=== PATIENT | male | born 1945 | race Caucasian/White ===

== ENCOUNTER → 2017-07-17 | Outpatient (CLI) | payer MEDICARE, BC ==
[~2017-07-17] MED LIST: ACET-2043 PO; ALLO-119 PO; ASPI-1441 PO; ASPI-757 PO; CALC200T27 PO; CALC600T63 PO; DOCU-416 PO; GLUC500C29 PO; HYDR-385 PO; HYDR12.561 PO; LOSA-54 PO; OXYC10TA19 PO; OXYC5CAP21 PO; TAM4 PO; [UNRECOGNIZED DRUG - CODE] RC
--- NOTE | 2017-07-21 10:04 | RT HOLTER TEST ---
FACILITY: [facility] PATIENT NAME: CHRISTEL GALLOWAY : [id number] MR: [id number] V: [id number] EXAM DATE: ORDERING PHYSICIAN: LEFTY MACHUCA TECHNOLOGIST: RAZIA Hook-up date: 2017-07-17 10:23:00 Duration: 47:59:00 Test Indications: BRADYCARDIA Medications: 888509 QRS complexes 952 Ventricular ectopics which represent <1 % of total QRS comp. 14 Supraventricular ectopics which represent <1 % of total QRS comp. * Paced QRS complexes which represent % of total QRS comp. VENTRICULAR ECTOPY 910 Isolated 0 Bigeminal Cycles 16 Couplets 1 Runs 10 Beats in Runs 10 Beats LONGEST at 95 BPM at 02:57:34 2017-07-19 10 Beats FASTEST at 95 BPM at 02:57:34 2017-07-19 SUPRAVENTRICULAR ECTOPY 3 Isolated 0 Couplets 3 Runs 11 Beats in Runs 4 Beats LONGEST at 85 BPM at 05:26:47 2017-07-18 4 Beats FASTEST at 92 BPM at 06:15:37 2017-07-18 HEART RATES 44 MIN at 04:33:20 2017-07-18 98 AVG 167 MAX at 15:14:59 2017-07-18 LONGEST RR 2.096 secs at 06:37:06 2017-07-18 S-T LEVELS Channel 1 -12.800 mm MIN at 10:23:00 2017-07-17 -12.800 mm MAX at 10:23:00 2017-07-17 Channel 2 -12.800 mm MIN at 10:23:00 2017-07-17 -12.800 mm MAX at 10:23:00 2017-07-17 Channel 3 -12.800 mm MIN at 10:23:00 2017-07-17 -12.800 mm MAX at 10:23:00 2017-07-17 Very rare supraventricular ectopy with a few short runs of 3-4 beats. Occasional ventricular ectopy with several couplets. One run of ten beats of apparent idioventricular rhythm with rate of approximately 70-80bpm was noted. A rare pause of approximately two seconds was noted. Intermittent T wave inversion was noted throughout recording in lead 2. Confirmed by JUANCARLOS SHAH ([id number]) on 07/21/2017 10:02:43 AM Referred By: Overread By: JUANCARLOS SHAH
== END ==
LOC: RESP 01:21
PROVIDERS: ATTEND Family Medicine
DX: R00.1 Bradycardia, unspecified (principal)
CPT/HCPCS: 93225

== ENCOUNTER 2017-09-17 08:00 | Outpatient (RCR) | payer MEDICARE, BC ==
[~2017-09-17 08:00] MED LIST changes: +DEXTROSE 5%(*) 100 ML BAG 100 ML IVPB PRN; +LIDOCAINE/SOD BICARB 8.4% SYR ID PRN; +NS(*) 0.9% 100 ML BAG 100 ML IVPB PRN; +NS(*) 0.9% 1000 ML BAG 1,000 ML IV ONE
[2017-09-17 08:20] VITALS: BP 150/103
[2017-09-17] MEDS ORDERED: IOPAMIDOL 76% 75 ML INFUS BTL 75 ML ONE (10:19)
--- NOTE | 2017-09-17 14:05 | RADIOLOGY IMAGING REPORT ---
FACILITY: [facility] PATIENT NAME: Taurus Jerez : 1945 MR: [id number] V: [id number] EXAM DATE: ORDERING PHYSICIAN: AUNDREA ROLLINS TECHNOLOGIST: Location: [facility] - [place] Patient: Taurus Jerez : 1945 Visit/Account:[id number] Date of Sevice: 09/17/2017 ADDENDUM #1 Dose Lowering Technique One of the following dose optimization techniques was utilized in the performance of this exam: Autom ated exposure control; adjustment of the mA and/or kV according to the patient's size; or use of an i terative reconstruction technique. Specific details can be referenced in the facility's radiology C T exam operational policy. Report Dictated By: Genoveva Moreno MD at 09/23/2017 2:39 PM Report E-Signed By: Genoveva Moreno MD at 09/23/2017 2:40 PM ORIGINAL REPORT CHEST/AB/PELV W/CONTRAST HISTORY: Renal cell carcinoma follow-up ADDITIONAL HISTORY: None. TECHNIQUE: Contiguous axial images acquired through the chest abdomen and pelvis following IV contras t. Coronal and sagittal reformatting was also performed. COMPARISON: December 27, 2016 Contrast: 75 mL of Isovue-370 FINDINGS: CHEST: Lungs/Pleura: Negative. Mediastinum/lymph nodes: Negative. Heart/vessels: Coronary artery vascular calcifications and coronary stent Bones/soft tissues: Dextroconvex scoliosis of the thoracic spine with spondylotic changes. ABDOMEN AND PELVIS: Hepatobiliary: Diffuse hepatic steatosis Spleen: Negative. Pancreas: Negative. Adrenals: Negative. Kidneys ureters and bladder : Severely atrophic right kidney with adjacent surgical clips appears sim ilar to the prior study. Right kidney is functioning with a faint nephrogram. 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 Vessels/spaces/nodes: Negative. Bones/soft tissues: Bilateral inguinal hernias containing fat are spondylotic changes lumbar spine Additional findings: None pertinent. 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
== END 2017-11-21 08:24 | disposition home or self-care (01) ==
LOC: SPU 08:00
PROVIDERS: ATTEND Internal Medicine Medical Oncology
DX: C64.1 Malignant neoplasm of right kidney, except renal pelvis (principal)
CPT/HCPCS: 71260; 74177; 82565; J7030; Q9967

== ENCOUNTER → 2018-09-18 | Outpatient (CLI) | payer MEDICARE, BC ==
[~2018-09-18] MED LIST changes: -DEXTROSE 5%(*) 100 ML BAG 100 ML IVPB PRN; +IOPAMIDOL 76% 100 ML INFUS BTL 100 ML ONE; -LIDOCAINE/SOD BICARB 8.4% SYR ID PRN; -NS(*) 0.9% 100 ML BAG 100 ML IVPB PRN; -NS(*) 0.9% 1000 ML BAG 1,000 ML IV ONE
--- NOTE | 2018-09-18 15:16 | RADIOLOGY IMAGING REPORT ---
FACILITY: [facility] [place] PATIENT NAME: Taurus Jerez : 1945 MR: [id number] V: [id number] EXAM DATE: ORDERING PHYSICIAN: AUNDREA ROLLINS TECHNOLOGIST: Location: [facility] [place] Patient: Taurus Jerez : 1945 Visit/Account:[id number] Date of Sevice: 09/18/2018 CT CHEST ABDOMEN PELVIS W & W/O HISTORY: renal cancer ADDITIONAL HISTORY: None. TECHNIQUE: Pre and post administration of IV contrast axial images acquired through the chest abdome n and pelvis during the portal venous phase. Coronal and sagittal reformatting was also performed.Do se Lowering Technique One of the following dose optimization techniques was utilized in the performance of this exam: Autom ated exposure control; adjustment of the mA and/or kV according to the patient's size; or use of an i terative reconstruction technique. Specific details can be referenced in the facility's radiology C T exam operational policy. CONTRAST: 75 mL Isovue-370 COMPARISON: September 17, 2017 FINDINGS: CHEST: Lungs/Pleura: There is a small amount of scarring in the medial left lower lobe Mediastinum/lymph nodes: Negative. Heart/vessels: Coronary artery calcifications and/or stents Bones/soft tissues: S-shaped scoliosis of the thoracal lumbar spine with spondylotic changes. ABDOMEN AND PELVIS: Hepatobiliary: Diffuse hepatic steatosis Spleen: Negative. Pancreas: Negative. Adrenals: Negative. Kidneys ureters and bladder : Left renal cyst again seen. Severely atrophic right kidney with adjace nt surgical clips appears similar to the prior study. A faint nephrogram is noted on the right. 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 Vessels/spaces/nodes: Negative. Bones/soft tissues: Tiny umbilical hernia containing fat. Bilateral inguinal hernias containing fat . No aggressive appearing bone lesions are seen Additional findings: None pertinent. IMPRESSION: Diffuse hepatic steatosis Severely atrophic right kidney with adjacent surgical clips appears similar to the prior study. The right kidney is functioning with a faint nephrogram. No CT evidence of metastatic disease within the chest abdomen or pelvis Additional chronic findings as described Report Dictated By: Genoveva Moreno MD at 09/18/2018 2:58 PM Report E-Signed By: Genoveva Moreno MD at 09/18/2018 3:08 PM WSN:[email or web address]
== END ==
LOC: CT 01:02
PROVIDERS: ATTEND Internal Medicine Medical Oncology
DX: K76.0 Fatty (change of) liver, not elsewhere classified (principal); N26.1 Atrophy of kidney (terminal)
CPT/HCPCS: 71270; 74178; Q9967